=== PATIENT | female | born 1940 ===

== ENCOUNTER 2017-06-11 09:58 | Day surgery (SDC) | payer MEDICARE ==
[2017-01-13 10:12] VITALS: BMI 23.3
[2017-06-11 10:48] LABS: BASO # 0.04 K/mm3 (0.0-2.0); BASO % 0.8 % (0.0-3.0); EOS # 0.2 (0.0-0.7); EOS % 3.2 % (1.5-5.0); GRAN # 2.83 (1.4-6.5); GRAN % 56.3 % (50.0-68.0); HEMATOCRIT 38.5 % (36.0-48.0); LYMPH # 1.6 (1.2-3.4); MEAN CELL VOLUME 95.3 fl (80.0-105.0); MEAN CORPUSCULAR HEMOGLOBIN 32.7 pg (25.0-35.0); MEAN CORPUSCULAR HGB CONC 34.3 g/dl (31.0-37.0); MEAN PLATELET VOLUME 9.4 fl (7.0-11.0); MONO # 0.4 (0.1-0.6); MONO % 8.7 % (1.0-6.0); RED CELL DISTRIBUTION WIDTH 13.3 % (11.5-14.5)
[2017-06-11 10:57] LABS: BLOOD UREA NITROGEN 15 mg/dL (7-21); CARBON DIOXIDE 22 mmol/L (21-33); CHLORIDE 106 mmol/L (98-107); GFR AFRICAN-AMERICAN > 60; GLUCOSE,RANDOM 153 mg/dL (70-110); POTASSIUM 4.4 mmol/L (3.6-5.0); SODIUM 143 mmol/L (132-148)
[2017-06-11 11:06] LABS: INR 1.04 (0.93-1.08); PARTIAL THROMBOPLASTIN TIME 27.7 Seconds (25.1-36.5)
[2017-06-11] MEDS ORDERED: Lidocaine 2% Inj (20ml) ONE ×2 (12:17→12:20)
[2017-06-11] MEDS ORDERED: Midazolam 2 MG/2 ML VIAL ONE ×2 (12:20→12:41)
[2017-06-11] MEDS ORDERED: Oxycodone/Acetaminophen 5/325 mg Tab PO PRN (13:01)
[2017-06-11] MEDS ORDERED: Sodium Chloride 0.45% 1,000 ML IV SCH (13:15)
[2017-06-11 14:28] VITALS: RESP 18; TEMP 98.1
[2017-06-11 14:35] VITALS: O2SAT 98
[2017-06-11 15:39] VITALS: BP 130/70; PULSE 60
--- NOTE | 2017-06-11 19:50 | VASCULAR ---
PROCEDURE: Removal of tunneled right internal jugular venous access port. CLINICAL HISTORY: Anal carcinoma. Completed chemotherapy. Remove port. PHYSICIAN(S): Mihir Moran M.D. TECHNIQUE: The relative risks and indications of the procedure were explained to the patient and consent obtained. The patient was placed supine on the arteriogram table and the right neck and chest prepped and draped usual sterile fashion. Conscious sedation and monitoring were provided throughout the procedure by a nurse. 1% Xylocaine was used to anesthetize the skin and soft tissues at the port. A 4 cm incision was made. The port was bluntly dissected and removed. The catheter was removed under fluoroscopic guidance. No retained catheter fragments were seen. The pocket was lavaged with normal saline. The pocket was closed in 2 layers. The patient tolerated the procedure well. IMPRESSION: 1. Removal of tunneled right internal jugular venous access port.
== END 2017-06-11 15:36 | disposition home or self-care (01) ==
LOC: SDS 09:58
PROVIDERS: ATTEND Radiology Vascular & Interventional Radiology
DX: Z45.2 Encounter for adjustment and management of vascular access device (principal); Z85.048 Personal history of other malignant neoplasm of rectum, rectosigmoid junction, and anus; Z92.21 Personal history of antineoplastic chemotherapy
CPT/HCPCS: 36415; 36590; 80048; 85025; 85610; 85730; 99152; J1644; J2250; J2405; J3010; J7030